=== PATIENT | male | born 1975 ===

== ENCOUNTER 2018-02-06 13:32 | Observation (INO) | payer BC ==
[2018-02-06] MEDS ORDERED: Nitroglycerin 2% 15 INCH/30 GM TUBE TOP STA (14:22)
--- NOTE | 2018-02-06 14:24 | ED PDOC ---
HPI: Chest Pain Time Seen by Provider: 02/06/18 14:01 Chief Complaint (Nursing): Chest Pain History Per: Patient Onset/Duration Of Symptoms: Hrs (1) Current Symptoms Are (Timing): Better Severity: Mild Pain Scale Rating Of: 4 Quality: Sharp Associated Symptoms: Dyspnea Exacerbating Factors: Deep Breathing Alleviating Factors: None Nitro Therapy Administered: 1, Per EMS, Partial Relief Additional Complaint(s): Sharp substernal chest pain radiating to left arm and neck x 1 hr [facility]. Partial improvement with 1 SL Nitro by ACLS. Pain worse on inspiration. Denies fever or cough Past Medical History Vital Signs: Last Vital Signs Temp 97.8 F 02/07/18 08:12 Pulse 50 L 02/07/18 08:12 Resp 18 02/07/18 08:12 BP 120/67 02/07/18 08:12 Pulse Ox 99 02/07/18 08:12 - Medical History PMH: No Chronic Diseases - Family History Family History: States: Unknown Family Hx - Social History Current smoker - smoking cessation education provided: Yes Drugs: Denies - Home Medications Home Medications: Ambulatory Orders Medication Instructions Recorded No Known Home Med 02/06/18 - Allergies Allergies/Adverse Reactions: Allergies Allergy/AdvReac Type Severity Reaction Status Date / Time No Known Allergies Allergy Verified 02/06/18 13:35 Review of Systems ROS Statement: Except As Marked, All Systems Reviewed And Found Negative Cardiovascular: Positive for: Chest Pain Physical Exam - Reviewed Nursing Documentation Reviewed: Yes Vital Signs Reviewed: Yes - Physical Exam Appears: Positive for: Non-toxic, No Acute Distress Head Exam: Positive for: ATRAUMATIC, NORMAL INSPECTION, NORMOCEPHALIC Skin: Positive for: Normal Color, Warm, DRY Eye Exam: Positive for: EOMI, Normal appearance, PERRL ENT: Positive for: Normal ENT Inspection Neck: Positive for: Normal, Painless ROM Cardiovascular/Chest: Positive for: Regular Rate, Rhythm. Negative for: Chest Non Tender (Ant chest wall tenderness) Respiratory: Positive for: CNT, Normal Breath Sounds Gastrointestinal/Abdominal: Positive for: Normal Exam, Soft Back: Positive for: Normal Inspection Extremity: Positive for: Normal ROM Neurologic/Psych: Positive for: Alert, Oriented - Laboratory Results Result Diagrams: 02/06/18 14:30 02/06/18 14:30 - ECG O2 Sat by Pulse Oximetry: 99 Medical Decision Making Medical Decision Making: Patient to be transferred to Dr. Vallecillo at 15:00, pending labs. Disposition - Clinical Impression Clinical Impression: Chest pain - Patient ED Disposition Is Patient to be Admitted: Transfer of Care - Disposition Disposition: Transfer of Care Disposition Time: 15:00 (pending labs) Condition: STABLE Patient Signed Over To: Elisa Vallecillo
[2018-02-06 15:01] LABS: BASO # 0.1 K/uL (0.0-0.2); EOS # 0.2 K/uL (0.0-0.7); EOS % 3.2 % (0.0-4.0); HEMOGLOBIN 14.5 g/dL (12.0-18.0); LYMPH # 1.7 K/uL (1.0-4.3); LYMPH % 24.3 % (20.0-40.0); MEAN CORPUSCULAR HEMOGLOBIN 30.3 pg (27.0-31.0); MEAN CORPUSCULAR HGB CONC 33.3 g/dL (33.0-37.0); MEAN PLATELET VOLUME 9.3 fl (7.2-11.7); MONO # 0.5 K/uL (0.0-0.8); MONO % 7.7 % (0.0-10.0); NEUT # 4.4 K/uL (1.8-7.0); NEUT % 63.8 % (50.0-75.0); RBC 4.77 Mil/uL (4.40-5.90); RED CELL DISTRIBUTION WIDTH 13.4 % (11.5-14.5); WHITE BLOOD COUNT 6.9 K/uL (4.8-10.8)
--- NOTE | 2018-02-06 15:07 | ED PDOC ---
- Laboratory Results Result Diagrams: 02/06/18 14:30 02/06/18 14:30 - ECG O2 Sat by Pulse Oximetry: 99 (RA) Pulse Ox Interpretation: Normal Medical Decision Making Medical Decision Making: Patient transferred to vt by Dr. Kimball at 15:00, pending labs. Scribe Attestation: Documented by Lam Saldana, acting as a scribe for Elisa Vallecillo MD. Provider Scribe Attestation: All medical record entries made by the Scribe were at my direction and personally dictated by me. I have reviewed the chart and agree that the record accurately reflects my personal performance of the history, physical exam, medical decision making, and the department course for this patient. I have also personally directed, reviewed, and agree with the discharge instructions and disposition. labs reviewed. chest x-ray and EKG normal. Patient still has pain but he has had these pains for at least 2 days. His lady friend says it is even longer than this. Patient was initially against admission. He then changed his mind on his own and decided to be admitted. Disposition Doctor Will See Patient In The: Office Counseled Patient/Family Regarding: Diagnosis, Need For Followup - Clinical Impression Clinical Impression: Chest pain - POA Present On Arrival: None - Disposition Referrals: Didier Richey MD [Staff Provider] - Nilo Stapleton MD [Staff Provider] - [facility] [place] [Outside] Disposition: Routine/Home Disposition Time: 15:59 Condition: STABLE Instructions: Chest Pain Forms: [facility] (Guyanese)
[2018-02-06 15:25] LABS: BLOOD UREA NITROGEN 11 mg/dl (9-20); CALCIUM 9.3 mg/dL (8.4-10.2); GFR NON-AFRICAN AMERICAN > 60
[2018-02-06 15:26] LABS: ALB/GLOB RATIO 1.5 (1.0-2.1); ALT/SGPT 32 U/L (21-72); AST/SGOT 22 U/L (17-59)
--- NOTE | 2018-02-06 15:29 | RAD ---
Date of service: 02/06/2018 HISTORY: Chest pain COMPARISON: No prior. TECHNIQUE: Chest PA and lateral FINDINGS: LUNGS: No active pulmonary disease. PLEURA: No significant pleural effusion identified. No pneumothorax apparent. CARDIOVASCULAR: Normal. OSSEOUS STRUCTURES: No significant abnormalities. VISUALIZED UPPER ABDOMEN: Normal. OTHER FINDINGS: None. IMPRESSION: No active disease.
[2018-02-06] MEDS ORDERED: Nitroglycerin 2% Ointment Foilpak UD TOP ONE (16:28)
--- NOTE | 2018-02-06 16:51 | CP.PCM.HP ---
<Leti Garcia - Last Filed: 02/06/18 16:45> History of Present Illness - History of Present Illness History of Present Illness: HPI: 42 YO Male with no sig PMHx presents to [facility] ED for chest pain. Pt states that he has had mild chest pain for the past couple of days but pain worsened today. Pain is located in the center of his chest, with pain radiation to his jaw and L arm and dyspnea associated with pain. Pt states that today his pain started in the morning, and worsened throughout the day, pain worse with deep inspiration. Pain not associated with activity. No cough, URI, diaphoresis, n/v , headache, change in vision. PMD: none PMHx: denies Surghx: R hand surgery and back cyst removal FHx: denies SHx: 1/2 pack a day x 20+yrs, denies ETOH and illicit drug use. Meds: none Allergies: NKDA Present on Admission - Present on Admission Any Indicators Present on Admission: No Review of Systems - Constitutional Constitutional: absent: Headache - Cardiovascular Cardiovascular: Chest Pain, Dyspnea. absent: Palpitations - Respiratory Respiratory: absent: Cough, Dyspnea - Gastrointestinal Gastrointestinal: absent: Abdominal Pain - Genitourinary Genitourinary: absent: Dysuria, Hematuria - Musculoskeletal Musculoskeletal: Radiating Pain into Limb (LUE). absent: Stiffness, Tingling - Neurological Neurological: absent: Dizziness, Headaches, Tingling Past Patient History - Past Social History Smoking Status: Heavy Smoker > 10 Cigarettes Daily Alcohol: None Drugs: Denies - PSYCHIATRIC Hx Substance Use: No - SURGICAL HISTORY Hx Musculoskeletal Surgery: Yes Meds Allergies/Adverse Reactions: Allergies Allergy/AdvReac Type Severity Reaction Status Date / Time No Known Allergies Allergy Verified 02/06/18 13:35 Physical Exam - Constitutional Appears: No Acute Distress, Other (tattoos in arms) - Head Exam Head Exam: NORMAL INSPECTION - Eye Exam Eye Exam: EOMI, Normal appearance - ENT Exam ENT Exam: Mucous Membranes Moist - Respiratory Exam Respiratory Exam: Clear to Auscultation Bilateral, NORMAL BREATHING PATTERN. absent: Wheezes - Cardiovascular Exam Cardiovascular Exam: REGULAR RHYTHM, +S1, +S2 Additional comments: tenderness to palpation of the mediasternal in L side - GI/Abdominal Exam GI & Abdominal Exam: Normal Bowel Sounds, Soft, Tenderness (mild tenderness in epigastria ). absent: Distended, Guarding - Extremities Exam Extremities exam: Positive for: normal inspection. Negative for: calf tenderness, pedal edema - Back Exam Back exam: NORMAL INSPECTION - Neurological Exam Neurological exam: Alert, CN II-XII Intact, Oriented x3 - Psychiatric Exam Psychiatric exam: Normal Mood Results - Vital Signs Recent Vital Signs: Last Vital Signs Temp 98.3 F 02/06/18 13:45 Pulse 66 02/06/18 14:39 Resp 20 02/06/18 13:45 BP 122/65 02/06/18 14:39 Pulse Ox 99 02/06/18 16:06 - Labs Result Diagrams: 02/06/18 14:30 02/06/18 14:30 Labs: Laboratory Results - last 24 hr 02/06/18 02/06/18 02/06/18 14:30 14:30 14:30 WBC 6.9 RBC 4.77 Hgb 14.5 Hct 43.4 MCV 91.0 MCH 30.3 MCHC 33.3 RDW 13.4 Plt Count 158 MPV 9.3 Neut % (Auto) 63.8 Lymph % (Auto) 24.3 [place] % (Auto) 7.7 Eos % (Auto) 3.2 Baso % (Auto) 1.0 Neut # (Auto) 4.4 Lymph # (Auto) 1.7 [place] # (Auto) 0.5 Eos # (Auto) 0.2 Baso # (Auto) 0.1 D-Dimer, Quantitative 134 Sodium 142 Potassium 3.9 Chloride 108 H Carbon Dioxide 23 Anion Gap 15 BUN 11 Creatinine 0.9 Est GFR ( Amer) > 60 Est GFR (Non-Af Amer) > 60 Random Glucose 80 Calcium 9.3 Total Bilirubin 0.5 AST 22 ALT 32 Alkaline Phosphatase 57 Troponin I < 0.0120 Total Protein 6.7 Albumin 4.0 Globulin 2.7 Albumin/Globulin Ratio 1.5 Assessment & Plan - Assessment and Plan (Free Text) Assessment: Assessment/Plan: 42 YO Male with no sig PMHx admitted for chest pain, r/o acs. -reproducible chest pain on palpation; will r/o cardiac etiology, r/o ACS -trop x 1 neg -pending trops -EKG acute St elevation, rate of 76 -cardiology consulted; pending recs -plan as ordered <Didier Richey - Last Filed: 02/08/18 20:29> Results - Vital Signs Recent Vital Signs: Last Vital Signs Temp 97.8 F 02/07/18 08:12 Pulse 50 L 02/07/18 08:12 Resp 18 02/07/18 08:12 BP 120/67 02/07/18 08:12 Pulse Ox 99 02/07/18 08:12 - Labs Result Diagrams: 02/06/18 14:30 02/06/18 14:30 Labs: Laboratory Results - last 24 hr 02/07/18 06:00 Hemoglobin A1c 5.9 Assessment & Plan - Assessment and Plan (Free Text) Assessment: Patient was personally seen and examined by me in rounds with residents. Available labs and diagnostic data reviewed. Case, Patient's condition and management plan discussed with residents in rounds. Agree with resident's progress note. Plan: As ordered.
--- NOTE | 2018-02-06 19:15 | CP.PCM.CON ---
History of Present Illness - History of Present Illness History of Present Illness: PT C/O CP MIDSTERNAL, RADIATING TO NECK AND LUE. SHARP, SEVER AND LASTS SEVERAL SECONDS THEN RESOLVES ON OWN. OCCURRING MULTIPLE TIMES PER MINUTE OVER PAST SEVERAL DAYS. THERE IS MILD UNDERLYING CHEST TIGHTNESS WITH DEEP BREATHS. NO SUBSTERNAL BURNING, NO N/V/D/C, NO PALP, NO TAMEZ, NO BURKS. PAIN APPEARS TO IMPROVE WITH MOVEMENT AND INCREASE WHILE AT REST. NO RELATION TO FOOD. NO HX OF HTN, DYSLIPID, DM, FAM HX OF CAD OR PERSONAL HX OF TOBACCO. EKG NSR, NML INTERVALS, NO ST ABN. Review of Systems - Constitutional Constitutional: As Per HPI. absent: Anorexia, Chills, Daytime Sleepiness, Excessive Sweating, Fatigue, Fever, Frequent Falls, Headache, Increased Appetite , Lethargy, Malaise, Night Sweats, Snoring, Sleep Apnea, Weight Gain, Weight Loss, Weakness, Other - EENT Eyes: As Per HPI. absent: Blind Spots, Blurred Vision, Change in Vision, Decreased Night Vision, Diplopia, Discharge, Dry Eye, Exophthalmos, Floaters, Irritation, Itchy Eyes, Loss of Peripheral Vision, Pain, Photophobia, Requires Corrective Lenses, Sees Flashes, Spots in Vision, Tunnel Vision, Other Visual Disturbances, Loss of Vision, Other Ears: As Per HPI. absent: Decreased Hearing, Ear Discharge, Ear Pain, Tinnitus , Abnormal Hearing, Disequilibrium, Dizziness, Other Nose/Mouth/Throat: As Per HPI. absent: Epistaxis, Nasal Congestion, Nasal Discharge, Nasal Obstruction, Nasal Trauma, Nose Pain, Post Nasal Drip, Sinus Pain, Sinus Pressure, Bleeding Gums, Change in Voice, Dental Pain, Dry Mouth, Dysphagia, Halitosis, Hoarsness, Lip Swelling, Mouth Lesions, Mouth Pain, Odynophagia, Sore Throat, Throat Swelling, Tongue Swelling, Facial Pain, Neck Pain, Neck Mass, Other - Cardiovascular Cardiovascular: As Per HPI, Chest Pain at Rest, Dyspnea, Pain Radiating to Arm/ Neck/Jaw, Lightheadedness. absent: Acrocyanosis, Chest Pain, Chest Pain with Activity, Claudication, Diaphoresis, Dyspnea on Exertion, Edema, Irregular Heart Rhythm, Leg Edema, Leg Ulcers, Orthopnea, Palpitations, Paroxysmal Nocturnal Dyspnea, Pedal Edema, Radiating Pain, Rapid Heart Rate, Slow Heart Rate, Syncope, Other - Respiratory Respiratory: As Per HPI, Pain on Inspiration. absent: Cough, Dyspnea, Hemoptysis, Dyspnea on Exertion, Wheezing, Snoring, Stridor, Chest Congestion, Excessive Mucous Production, Change in Mucous Color, Pain with Coughing, Other - Gastrointestinal Gastrointestinal: As Per HPI. absent: Abdominal Pain, Belching, Bloating, Change in Bowel Habits, Change in Stool Character, Coffee Ground Emesis, Constipation, Cramping, Diarrhea, Dyspepsia, Dysphagia, Early Satiety, Excessive Flatus, Fecal Incontinence, Heartburn, Hematemesis, Hematochezia, Loose Stools, Melena, Nausea, Odynophagia, Temesmus, Vomiting, Other - Genitourinary Genitourinary: As Per HPI. absent: Change in Urinary Stream, Difficulty Urinating, Dysuria, Flank Pain, Hematuria, Pyuria, Nocturia, Urinary Incontinence, Urinary Frequency, Urinary Hesitance, Urinary Urgency, Voiding Freq/Small Amts, Freq UTI, Hx Renal/Bladder Calculi, Hx /Renal Surgery, Bladder Distension, Other - Reproductive: Male Reproductive:Male: As Per HPI - Musculoskeletal Musculoskeletal: As Per HPI. absent: Abnormal Gait, Arthralgias, Atrophy, Back Pain, Deformity, Joint Swelling, Limited Range of Motion, Loss of Height, Muscle Cramps, Muscle Weakness, Myalgias, Neck Pain, Numbness, Radiating Pain into Limb, Stiffness, Tingling, Other - Integumentary Integumentary: As Per HPI. absent: Acne, Alopecia, Bleeding Lesions, Change in Hair, Change in Nails, Change in Pigmentation, Changing Lesions, Dry Skin, Erythema, Furuncle, Hirsutism, Lesions, New Lesions, Non-Healing Lesions, Photosensitivity, Pruritus, Rash, Skin Pain, Skin Ulcer, Sores, Striae, Swelling , Unusual Bruising, Wounds, Jaundice, Other - Neurological Neurological: As Per HPI. absent: Abnormal Gait, Abnormal Hearing, Abnormal Movements, Abnormal Speech, Behavioral Changes, Burning Sensations, Confusion, Convulsions, Disequilibrium, Dizziness, Numbness, Focal Weakness, Frequent Falls , Headaches, Lack of Coordination, Loss of Vision, Memory Loss, Paresthesias, Radicular Pain, Restless Legs, Sensory Deficit, Syncope, Tingling, Tremor, Vertigo, Weakness, Other Visual Disturbances, Other - Psychiatric Psychiatric: As Per HPI. absent: Abnormal Sleep Pattern, Anhedonia, Anxiety, Auditory Hallucinations, Behavioral Changes, Change in Appetite, Change in Libido, Confusion, Depression, Difficulty Concentrating, Hallucinations, Homicidal Ideation, Hopelessness, Irritability, Memory Loss, Mood Swings, Panic Attacks, Paranoia, Suicidal Ideation, Visual Hallucinations, Tactile Hallucinations, Other - Endocrine Endocrine: As Per HPI. absent: Change in Body Appearance, Change in Libido, Cold Intolorance, Deepening of Voice, Excessive Sweating, Fatigue, Flushing, Heat Intolorance, Increase in Ring/Shoe/Hat Size, Palpitations, Polydipsia, Polyphagia, Polyuria, Other - Hematologic/Lymphatic Hematologic: As Per HPI. absent: Easy Bleeding, Easy Bruising, Lymphadenopathy , Other Past Patient History - Past Social History Smoking Status: Heavy Smoker > 10 Cigarettes Daily Alcohol: None Drugs: Denies - PSYCHIATRIC Hx Substance Use: No - SURGICAL HISTORY Hx Musculoskeletal Surgery: Yes Meds Allergies/Adverse Reactions: Allergies Allergy/AdvReac Type Severity Reaction Status Date / Time No Known Allergies Allergy Verified 02/06/18 13:35 - Medications Medications: Current Medications Acetaminophen (Tylenol 325mg Tab) 650 mg PO Q6 PRN PRN Reason: Pain, Mild (1-3) Aspirin (Aspirin Chewable) 81 mg PO DAILY [facility] Enoxaparin Sodium (Lovenox) 40 mg SC DAILY [facility] PRN Reason: Protocol Nitroglycerin (Nitrostat Sl Tab) 0.4 mg SL Q5M PRN PRN Reason: Angina Pantoprazole Sodium (Protonix Ec Tab) 20 mg PO DAILY [facility] Physical Exam - Constitutional Appears: Non-toxic - Head Exam Head Exam: ATRAUMATIC, NORMAL INSPECTION, NORMOCEPHALIC - Eye Exam Eye Exam: EOMI, Normal appearance, PERRL. absent: Conjunctival injection, Nystagmus, Periorbital swelling, Periorbital tenderness, Scleral icterus Pupil Exam: NORMAL ACCOMODATION, PERRL. absent: Fixed, Irregular, Miosis, Mydriatic, Unequal - ENT Exam ENT Exam: Mucous Membranes Moist, Normal Exam. absent: Mucous Membranes Dry, Normal External Ear Exam, Normal Oropharynx, TM's Normal Bilaterally - Neck Exam Neck exam: Positive for: Normal Inspection. Negative for: Full Rom, Lymphadenopathy, Meningismus, Tenderness, Thyromegaly - Respiratory Exam Respiratory Exam: Clear to Auscultation Bilateral, NORMAL BREATHING PATTERN. absent: Accessory Muscle Use, Chest Wall Tenderness, Decreased Breath Sounds, Prolonged Expiratory Phase, Rales, Rhonchi, Wheezes, Respiratory Distress, Stridor - Cardiovascular Exam Cardiovascular Exam: REGULAR RHYTHM, +S1, +S2, Systolic Murmur. absent: Bradycardia, Tachycardia, Clicks, Diastolic murmur, Gallop, Irregular Rhythm, JVD, RRR, Rubs, +S4 - GI/Abdominal Exam GI & Abdominal Exam: Normal Bowel Sounds, Soft, Tenderness. absent: Bruit, Diminished Bowel Sounds, Distended, Firm, Guarding, Hernia, Hyperactive Bowel Sounds, Hypoactive Bowel Sounds, Mass, Organomegaly, Pulsatile Mass, Rebound, Rigid Additional comments: EPIGASTRIC TENDERNESS WITH PALP - Extremities Exam Extremities exam: Positive for: normal inspection, pedal pulses present. Negative for: calf tenderness, full ROM, joint swelling, normal capillary refill , pedal edema, tenderness - Back Exam Back exam: NORMAL INSPECTION. absent: CVA tenderness (L), CVA tenderness (R), FULL ROM, muscle spasm, paraspinal tenderness, rash noted, tenderness, vertebral tenderness - Neurological Exam Neurological exam: Alert, CN II-XII Intact, Normal Gait, Oriented x3, Reflexes Normal - Psychiatric Exam Psychiatric exam: Normal Affect, Normal Mood - Skin Skin Exam: Dry, Intact, Normal Color, Warm Results - Vital Signs Recent Vital Signs: Last Vital Signs Temp 98.4 F 02/06/18 18:53 Pulse 70 02/06/18 18:53 Resp 18 02/06/18 18:53 BP 106/70 02/06/18 18:53 Pulse Ox 99 02/06/18 18:53 - Labs Result Diagrams: 02/06/18 14:30 02/06/18 14:30 Labs: Laboratory Results - last 24 hr 02/06/18 02/06/18 02/06/18 14:30 14:30 14:30 WBC 6.9 RBC 4.77 Hgb 14.5 Hct 43.4 MCV 91.0 MCH 30.3 MCHC 33.3 RDW 13.4 Plt Count 158 MPV 9.3 Neut % (Auto) 63.8 Lymph % (Auto) 24.3 [place] % (Auto) 7.7 Eos % (Auto) 3.2 Baso % (Auto) 1.0 Neut # (Auto) 4.4 Lymph # (Auto) 1.7 [place] # (Auto) 0.5 Eos # (Auto) 0.2 Baso # (Auto) 0.1 D-Dimer, Quantitative 134 Sodium 142 Potassium 3.9 Chloride 108 H Carbon Dioxide 23 Anion Gap 15 BUN 11 Creatinine 0.9 Est GFR ( Amer) > 60 Est GFR (Non-Af Amer) > 60 Random Glucose 80 Calcium 9.3 Total Bilirubin 0.5 AST 22 ALT 32 Alkaline Phosphatase 57 Troponin I < 0.0120 Total Protein 6.7 Albumin 4.0 Globulin 2.7 Albumin/Globulin Ratio 1.5 Assessment & Plan (1) Epigastric abdominal pain Status: Acute (2) History of anxiety Status: Acute (3) Chest pain Status: Acute - Assessment and Plan (Free Text) Plan: CP IS ATYPICAL. EPIGASTRIC PAIN NOTED. BOWEL SOUNDS HEARD IN CHEST. I SUSPECT GERD WITH POSSIBLE MINOR HIATAL HERNIA AND ESOPH SPASMS. WOULD R/O [place] , CONT ASA AT 81MG DAILY. IF [place] RULED OUT THEN MAY BE D/C TO HOME. WILL CALL FOR F/U APPOINTMENT AND HAVE ECHO AND ST OUTPT. CONSIDER STARTING PPI.
[2018-02-06] MEDS ORDERED: Pneumococcal 23-Valent Vaccine IM ONE (20:37)
--- NOTE | 2018-02-06 21:03 | CARD ---
APPROVED REPORT Date of service: 02/06/2018 EKG Measurement Heart [id number] <Conclusion> Normal sinus rhythm Possible Left atrial enlargement Borderline ECG
[2018-02-07 00:18] VITALS: RESP 18; O2SAT 99
[2018-02-07 08:12] VITALS: BP 120/67; PULSE 50; TEMP 97.8
[2018-02-07] MEDS ORDERED: Enoxaparin 40 mg Syringe SC SCH (09:00)
[2018-02-07] MEDS ORDERED: Pantoprazole 20 mg EC Tab PO SCH (09:00)
== END 2018-02-07 11:20 | disposition home or self-care (01) ==
LOC: H.ER 13:32 → H.ERHOLD 16:06 → H.TEL 18:44
PROVIDERS: ADMIT Internal Medicine; ATTEND Internal Medicine
DX: R07.9 Chest pain, unspecified (principal); F17.200 Nicotine dependence, unspecified, uncomplicated; Z23 Encounter for immunization
CPT/HCPCS: 36415; 71046; 80053; 80061; 82607; 83036; 84443; 84484; 85025; 85378; 90732; 93005; 99285; G0009; G0378; J1650

== ENCOUNTER 2018-08-28 09:31 | Emergency (ER) | payer OTHER, BC ==
[2018-08-28 09:34] VITALS: BMI 26.5
[2018-08-28] MEDS ORDERED: Lidocaine 5% Patch TD STA (10:08)
[2018-08-28] MEDS ORDERED: Lidocaine 5% Patch TD ONE (10:23)
--- NOTE | 2018-08-28 10:50 | ED PDOC ---
HPI: Trauma/Fall - HPI Time Seen by Provider: 08/28/18 09:48 Chief Complaint (Nursing): Trauma Chief Complaint (Provider): Trauma History Per: Patient History/Exam Limitations: no limitations Onset/Duration Of Symptoms: Hrs (prior to arrival) Associated Symptoms: denies: Dizziness, LOC Additional Complaint(s): Mark Jose is a 43 year old male, with a past medical history of herniated discs, who as brought to the emergency department by EMS for evaluation of head, neck and back pain s/p fall at work onset prior to arrival. Patient states he accidentally fell backwards from a 4ft ladder while working. Patient landed on his back and hit his head but denies any LOC. He is complaining of pain to the back of the head, neck pain and a lower back pain that radiates down the left leg. He did not take any medication for pain. He denies any chest pain, shortness of breath, abdominal pain, nausea, vomit, diarrhea, vision changes, dizziness, incontinence, weakness, numbness or tingling. No further medical complaints. PMD: None provided. Past Medical History Reviewed: Historical Data, Nursing Documentation, Vital Signs Vital Signs: Last Vital Signs Temp 97.8 F 08/28/18 09:33 Pulse 80 08/28/18 09:33 Resp BP 129/78 08/28/18 09:33 Pulse Ox 96 08/28/18 09:33 - Medical History PMH: Denies: HIV Other PMH: herniated disc - Surgical History Surgical History: No Surg Hx - Family History Family History: States: Unknown Family Hx - Social History Current smoker - smoking cessation education provided: Yes (Heavy smoker >10 cigarettes daily) Alcohol: None Drugs: Denies - Home Medications Home Medications: Ambulatory Orders Medication Instructions Recorded Diazepam [Valium] 2 mg PO BID PRN #6 tab 08/28/18 Ibuprofen [Motrin] 600 mg PO TID 7 Days tab 08/28/18 Lidocaine 5% [Lidoderm] 1 ea TD DAILY PRN #5 patch 08/28/18 - Allergies Allergies/Adverse Reactions: Allergies Allergy/AdvReac Type Severity Reaction Status Date / Time No Known Allergies Allergy Verified 02/06/18 13:35 Review of Systems ROS Statement: Except As Marked, All Systems Reviewed And Found Negative Eyes: Negative for: Vision Change Cardiovascular: Negative for: Chest Pain Respiratory: Negative for: Shortness of Breath Gastrointestinal: Negative for: Nausea, Vomiting, Abdominal Pain, Diarrhea, Constipation Genitourinary Male: Negative for: Incontinence Musculoskeletal: Positive for: Neck Pain, Back Pain (radiates down left leg), Leg Pain (left) Neurological: Positive for: Headache. Negative for: Weakness, Numbness (tingling), Dizziness Physical Exam - Reviewed Nursing Documentation Reviewed: Yes Vital Signs Reviewed: Yes - Physical Exam Appears: Positive for: No Acute Distress Head Exam: Positive for: ATRAUMATIC (No hematoma on the back of the head), NORMAL INSPECTION, NORMOCEPHALIC Skin: Positive for: Normal Color, Warm, Dry Eye Exam: Positive for: Normal appearance, EOMI, PERRL ENT: Positive for: Normal ENT Inspection Neck: Negative for: Normal (Tenderness to the lateral neck) Cardiovascular/Chest: Positive for: Regular Rate, Rhythm, Chest Non Tender. Negative for: Murmur Respiratory: Positive for: Normal Breath Sounds. Negative for: Respiratory Distress Gastrointestinal/Abdominal: Positive for: Normal Exam, Soft. Negative for: Tenderness, Guarding, Rebound, Other (ecchymosis) Back: Positive for: Other (Mild tenderness to entire back and across lower back. Straight leg raise test positive at 10 on left and 45 on right.) Extremity: Positive for: Normal ROM (upper and lower extremities). Negative for: Tenderness, Deformity, Swelling Neurologic/Psych: Positive for: Alert, Oriented. Negative for: Motor/Sensory Deficits - ECG O2 Sat by Pulse Oximetry: 96 (RA) Pulse Ox Interpretation: Normal - Radiology X-Ray: Interpreted by Me, Viewed By Me X-Ray Interpretation: No Acute Disease - CT Scan/US ct Other Rad Studies (CT/US): Read By Radiologist Other Rad Interpretation: no acute - Progress ED Course And Treament: 1229: Stable. AAOx3. Pain free. Tolerated PO. Fu with pcp. Ambulated. Medical Decision Making Medical Decision Making: Time: 09:48 Initial Impression: Back and neck pain s/p fall Initial Plan: --Cervical Spine w/o contrast [CT] --Head w/o contrast [CT] --Lumbar Spine complete [RAD] --Lidoderm 1 ea TD --Tylenol 325mg tab 975 mg PO --Dorsal (Thoracic) Spine [RAD] --Reevaluation Scribe Attestation: Documented by Joey Scott, acting as a scribe for Javid Callahan MD Provider Scribe Attestation: All medical record entries made by the Scribe were at my direction and personally dictated by me. I have reviewed the chart and agree that the record accurately reflects my personal performance of the history, physical exam, medical decision making, and the department course for this patient. I have also personally directed, reviewed, and agree with the discharge instructions and disposition. Disposition - Clinical Impression Clinical Impression: Head injury, Back injury - Patient ED Disposition Is Patient to be Admitted: No Counseled Patient/Family Regarding: Studies Performed, Diagnosis, Need For Followup, Rx Given - Disposition Referrals: [facility] [Outside] - 08/31/18 Disposition: Routine/Home Disposition Time: 12:30 Condition: STABLE Additional Instructions: Return if not better in 3 days. Prescriptions: Diazepam [Valium] 2 mg PO BID PRN #6 tab PRN Reason: Muscle Spasm Ibuprofen [Motrin] 600 mg PO TID 7 Days tab Lidocaine 5% [Lidoderm] 1 ea TD DAILY PRN #5 patch PRN Reason: Pain, Moderate (4-7) Instructions: Low Back Pain in Adults, Closed Head Injury (DC) Forms: [employer] (He[employer]), [facility] ED School/Work Excuse
--- NOTE | 2018-08-28 12:11 | CT ---
Date of service: 08/28/2018 PROCEDURE: CT HEAD WITHOUT CONTRAST. HISTORY: headache COMPARISON: None available. TECHNIQUE: Axial computed tomography images were obtained through the head/brain without intravenous contrast. Radiation dose: Total exam DLP = 789.25 mGy-cm. This CT exam was performed using one or more of the following dose reduction techniques: Automated exposure control, adjustment of the mA and/or kV according to patient size, and/or use of iterative reconstruction technique. FINDINGS: HEMORRHAGE: No intracranial hemorrhage. BRAIN: No mass effect or edema. No atrophy or chronic microvascular ischemic changes. VENTRICLES: Unremarkable. No hydrocephalus. CALVARIUM: Unremarkable. PARANASAL SINUSES: Chronic ethmoid, sphenoid and bilateral maxillary sinusitis. MASTOID AIR CELLS: Unremarkable as visualized. No inflammatory changes. OTHER FINDINGS: None. IMPRESSION: No intracranial hemorrhage. Chronic paranasal sinusitis. No additional abnormality.
--- NOTE | 2018-08-28 12:17 | CT ---
Date of service: 08/28/2018 PROCEDURE: CT Cervical Spine without contrast HISTORY: neck pain COMPARISON: None available. TECHNIQUE: Axial computed tomography images were obtained of the cervical spine without the use of intravenous contrast. Coronal and sagittal reformatted images were created and reviewed. Radiation dose: Total exam DLP = 320.53 mGy-cm. This CT exam was performed using one or more of the following dose reduction techniques: Automated exposure control, adjustment of the mA and/or kV according to patient size, and/or use of iterative reconstruction technique. FINDINGS: VERTEBRAE: No fracture. Normal alignment. No destructive bony lesion. DISCS/SPINAL CANAL/NEURAL FORAMINA: No significant central canal or neural foraminal stenosis. Discs heights are grossly preserved. PARASPINAL SOFT TISSUES: Unremarkable. OTHER FINDINGS: Chronic sphenoid sinusitis incidentally noted. IMPRESSION: No fracture or dislocation. Incidental chronic sphenoid sinusitis.
[2018-08-28 13:16] VITALS: BP 135/72; PULSE 72; RESP 16; TEMP 97.7; O2SAT 99
--- NOTE | 2018-08-28 15:08 | RAD ---
08/28/2018 HISTORY: pain COMPARISON: No prior. FINDINGS: BONES: Alignment maintained. No fracture. DISC SPACES: Normal. SOFT TISSUES: Normal. OTHER FINDINGS: None. IMPRESSION: Normal radiographs of the thoracic spine.
--- NOTE | 2018-08-28 15:08 | RAD ---
Date of service: 08/28/2018 PROCEDURE: Radiographs of the Lumbar Spine. HISTORY: back pain COMPARISON: No prior. FINDINGS: BONES: Normal alignment. No listhesis. No fracture. DISC SPACES: Unremarkable. OTHER FINDINGS: None. IMPRESSION: Unremarkable radiographs of the lumbar spine. Concordant results with the preliminary interpretation rendered by the emergency department physician procedure.
== END 2018-08-28 13:15 | disposition home or self-care (01) ==
LOC: H.ER 09:31
DX: S09.90XA Unspecified injury of head, initial encounter (principal); S39.92XA Unspecified injury of lower back, initial encounter; W11.XXXA Fall on and from ladder, initial encounter; Y99.0 Civilian activity done for income or pay; J32.3 Chronic sphenoidal sinusitis; F17.210 Nicotine dependence, cigarettes, uncomplicated
CPT/HCPCS: 70450; 72070; 72114; 72125; 96372; 99285; J1885